=== PATIENT | female | born 1965 | race Caucasian/White ===

== ENCOUNTER → 2017-10-03 | Outpatient (CLI) | payer MEDICARE, MEDICAID ==
[~2017-10-03] MED LIST: ALLERGY PILL; BLOOD PRESSURE PO; CELEXA; DOXYCYCLINE 10100 MG PO; HYGROTON25 MG PO; NORCO 325 MG-51 TAB PO; PROAIR HFA0.09 MG/AC IH; SINGULAIR; TYLENOL W/COD1 UDTAB PO; ULTRAM 50MG TAB50 MG PO; VALIUM 10MG10 MG/TAB PO; VALIUM 5MG T5 MG/TAB PO; XANAX .25M0.25 MG/TA PO; XANAX0.5 MG PO; [UNRECOGNIZED DRUG - REMARK]
== END ==
LOC: MC.RAD 08-04 14:20
DX: Z12.31 Encounter for screening mammogram for malignant neoplasm of breast (principal)

== ENCOUNTER → 2017-11-02 | Outpatient (CLI) | payer MEDICARE, MEDICAID | LOC: MC.RAD 12:11 | DX: N63.11 Unspecified lump in the right breast, upper outer quadrant (principal) ==

== ENCOUNTER 2018-06-08 13:45 | Outpatient (RCR) | payer MEDICARE, MEDICAID | END 2018-07-12 | disposition home or self-care (01) | LOC: MKS.ESL.PT | DX: M25.562 Pain in left knee (principal) | CPT/HCPCS: G8978-GP; G8979-GP ==

== ENCOUNTER 2019-06-26 13:56 | Emergency (ER) | payer MEDICARE, MEDICAID ==
[~2019-06-26] VITALS: Ht 157.5 cm; Wt 140.0 kg
[2019-06-26 14:01] VITALS: BP 127/71; TEMP 97.9
[2019-06-26] MEDS ORDERED: TAMIFLU 75MG75 MG PO (15:06)
[2019-06-26 15:10] VITALS: PULSE 89
== END 2019-06-26 15:15 | disposition home or self-care (01) ==
LOC: COL.ER 13:56
DX: J11.1 Influenza due to unidentified influenza virus with other respiratory manifestations (principal)

== ENCOUNTER → 2020-06-15 | Outpatient (REF) ==
[~2020-06-15] MED LIST changes: +CEFTIN500 MG PO; +TAMIFLU 75MG75 MG PO
== END ==
LOC: ZLAB.WCH 09:32
DX: Z01.89 Encounter for other specified special examinations (principal)

== ENCOUNTER → 2021-01-02 | Outpatient (CLI) | payer MEDICARE, MEDICAID | LOC: MC.RAD 10:32 | DX: Z12.31 Encounter for screening mammogram for malignant neoplasm of breast (principal) ==

== ENCOUNTER 2021-01-14 21:59 | Emergency (ER) | payer MEDICARE, MEDICAID ==
[~2021-01-14] VITALS: Ht 157.5 cm; Wt 136.4 kg
[2021-01-14 22:33] VITALS: TEMP 98.1
[2021-01-14 23:16] VITALS: BP 103/61; PULSE 91
== END 2021-01-14 23:16 | disposition home or self-care (01) ==
LOC: COL.ER 21:59
DX: F41.9 Anxiety disorder, unspecified (principal); R25.3 Fasciculation

== ENCOUNTER 2021-03-25 23:06 | Emergency (ER) | payer MEDICARE, MEDICAID ==
[~2021-03-25] VITALS: Ht 157.5 cm; Wt 127.3 kg
[2021-03-25 23:50] VITALS: BP 167/102; PULSE 94; TEMP 98.4
== END 2021-03-25 23:50 | disposition home or self-care (01) ==
LOC: COL.ER 23:06
DX: F41.9 Anxiety disorder, unspecified (principal); R25.3 Fasciculation; J45.909 Unspecified asthma, uncomplicated

== ENCOUNTER 2021-11-20 00:48 | Emergency (ER) | payer MEDICARE, MEDICAID ==
[~2021-11-20] VITALS: Ht 157.5 cm; Wt 138.6 kg
[2021-11-20 00:51] VITALS: TEMP 98.8
[2021-11-20 01:10] LABS: BASO % 0.3 % (0.0-2.0); EOS # 0.6 K/mm3 (0.0-0.7); EOS % 4.6 % (0.0-4.0); GRAN # 8.5 K/mm3 (1.4-6.5); GRAN % 69.6 % (42.2-75.2); HEMATOCRIT 38.6 % (37.0-47.0); HEMOGLOBIN 12.4 g/dl (12.5-16.0); LYMPH # 2.2 K/mm3 (1.2-3.4); LYMPH % 17.8 % (20.0-51.0); MEAN CELL VOLUME 89 fl (80.0-100.0); MEAN CORPUSCULAR HEMOGLOBIN 29 pg (27-31); MEAN CORPUSCULAR HGB CONC 32 g/dl (33.0-37.0); MEAN PLATELET VOLUME 9.6 fl (7.4-10.4); MONO # 0.8 K/mm3 (0.1-0.6); MONO % 6.3 % (1.7-9.3); PLATELET COUNT 298 K/mm3 (130-400); RED BLOOD COUNT 4.35 M/mm3 (4.10-5.30); REDCELL DISTRIBUTION WIDTH-CV 14.9 % (11.5-14.5)
[2021-11-20 01:21] LABS: ALANINE AMINOTRANSFERASE 18 U/L (0-55); ALBUMIN 3.5 gm/dL (3.5-5.0); ALKALINE PHOSPHATASE 103 U/L (40-150); ANION GAP 12 mmol/L (7-16); AST,SGOT 16 U/L (5-34); BILIRUBIN,TOTAL 0.3 mg/dL (0.2-1.2); BLOOD UREA NITROGEN 16 mg/dL (10-20); CALCIUM 10.2 mg/dL (8.4-10.2); CARBON DIOXIDE 23 mmol/L (22-29); CHLORIDE 107 mmol/L (98-107); CREATININE, serum 0.91 mg/dL (0.57-1.11); GLUCOSE 113 mg/dL (70-99); POTASSIUM 4.1 mmol/L (3.5-4.5); SODIUM 142 mmol/L (136-145); TOTAL PROTEIN 7.4 gm/dL (6.2-8.1)
[2021-11-20 01:26] LABS: TROPONIN-I < 0.010 ng/mL (0.00-0.033)
[2021-11-20 02:09] VITALS: BP 154/80; PULSE 99
== END 2021-11-20 02:09 | disposition home or self-care (01) ==
LOC: COL.ER 00:48
PROVIDERS: Emergency Medicine
DX: R60.0 Localized edema (principal)

== ENCOUNTER 2022-04-02 07:39 | Emergency (ER) | payer MEDICARE, MEDICAID ==
[~2022-04-02] VITALS: Ht 157.5 cm; Wt 149.1 kg
[2022-04-02 07:43] VITALS: TEMP 97.7
[2022-04-02 08:33] LABS: BASO # 0.1 K/mm3 (0.0-0.2); BASO % 0.4 % (0.0-2.0); EOS # 0.4 K/mm3 (0.0-0.7); EOS % 2.7 % (0.0-4.0); GRAN # 11.4 K/mm3 (1.4-6.5); GRAN % 74.5 % (42.2-75.2); HEMATOCRIT 43.1 % (37.0-47.0); HEMOGLOBIN 13.8 g/dl (12.5-16.0); LYMPH # 2.4 K/mm3 (1.2-3.4); LYMPH % 15.3 % (20.0-51.0); MEAN CELL VOLUME 91 fl (80.0-100.0); MEAN CORPUSCULAR HEMOGLOBIN 29 pg (27-31); MEAN CORPUSCULAR HGB CONC 32 g/dl (33.0-37.0); MEAN PLATELET VOLUME 10.1 fl (7.4-10.4); MONO % 6.2 % (1.7-9.3); PLATELET COUNT 324 K/mm3 (130-400); RED BLOOD COUNT 4.74 M/mm3 (4.10-5.30); REDCELL DISTRIBUTION WIDTH-CV 15.1 % (11.5-14.5)
[2022-04-02 08:56] LABS: ALBUMIN 3.9 gm/dL (3.5-5.0); BILIRUBIN,TOTAL 0.5 mg/dL (0.2-1.2); CALCIUM 10.7 mg/dL (8.4-10.2); CREATININE, serum 0.92 mg/dL (0.57-1.11); POTASSIUM 4.2 mmol/L (3.5-4.5); TOTAL PROTEIN 8.2 gm/dL (6.2-8.1)
[2022-04-02 11:44] VITALS: BP 141/97; PULSE 83
== END 2022-04-02 11:50 | disposition home or self-care (01) ==
LOC: COL.ER 07:39
PROVIDERS: Emergency Medicine
DX: N93.9 Abnormal uterine and vaginal bleeding, unspecified (principal); N83.201 Unspecified ovarian cyst, right side; N83.202 Unspecified ovarian cyst, left side; Z28.311 Partially vaccinated for COVID-19
CPT/HCPCS: Q9967

== ENCOUNTER 2023-09-12 19:59 | Emergency (ER) | payer MEDICARE, MEDICAID ==
[~2023-09-12] VITALS: Ht 157.5 cm; Wt 134.5 kg
[2023-09-12 19:59] VITALS: TEMP 97.1
[~2023-09-12 19:59] MED LIST changes: +00186-0370-20 IH; +ATARAX 25MG25 MG/TAB PO; +BACTRIM DS 8001 TAB PO; +CEPHALEXIN500 M1 PO; +CLEOCIN HC150 MG/CAP PO; +DESENEX TP; +DIFLUCAN150 MG PO; +DIFLUCAN200 MG PO; +ERGOCALCIFER50000 IU PO; +FLONASE NASAL S16 GM NS; +GLUCOPHAGE1000 MG PO; +INSULIN PEN NE1 EAC1 MC; +LASIX 40MG TABL40 MG PO; +LEVEMIR FLEX100 U/ML SQ; +LIPITOR 40MG TA40 MG PO; +MOUNJARO2.5 MG/0.5 SQ; +MYCOGEN CR 15GM TP; +MYCOSTATIN100000 U/1 TP; +NYSTATIN CREAM15 GM TP; +VENTOLIN0.09 MG IH; +VICTOZA6 MG/ML SQ
[2023-09-12 20:21] LABS: URINE APPEARANCE TURBID (CLEAR/HAZY); URINE BLOOD TRACE (NEGATIVE); URINE COLOR YELLOW (YELLOW); URINE GLUCOSE 3+ (NEGATIVE); URINE KETONE NEGATIVE (NEGATIVE); URINE NITRATE NEGATIVE (NEGATIVE); URINE PROTEIN(semi-quant) NEGATIVE (NEGATIVE); URINE UROBILINOGEN 0.2 E.U/dL (0.2-1.0)
[2023-09-12] MEDS ORDERED: MYCOGEN CR 15GM TP (20:24)
[2023-09-12 20:31] LABS: BUDDING YEAST PRESENT (NOT PRESENT); URINE BACTERIA MODERATE /hpf (NONE SEEN)
[2023-09-12] MEDS ORDERED: CEFTIN500 MG PO (20:44)
[2023-09-12] MEDS ORDERED: Cefuroxime 250 MG TAB PO ONE (20:45)
[2023-09-12 21:02] VITALS: BP 145/82; PULSE 90
[2023-09-13 10:16] LABS: COLLECTION METHOD CLEAN CATCH
== END 2023-09-12 21:02 | disposition home or self-care (01) ==
LOC: COL.ER 19:59
PROVIDERS: Nurse Practitioner Primary Care
DX: B37.2 Candidiasis of skin and nail (principal); N39.0 Urinary tract infection, site not specified

== ENCOUNTER 2024-02-01 05:55 | Emergency (ER) | payer MEDICARE, MEDICAID ==
[~2024-02-01] VITALS: Ht 157.5 cm; Wt 131.8 kg
[2024-02-01 05:57] VITALS: TEMP 99
[2024-02-01] MEDS ORDERED: LORazepam 1 MG TAB PO ONE (06:15)
[2024-02-01 06:35] VITALS: BP 126/91; PULSE 88
== END 2024-02-01 06:35 | disposition home or self-care (01) ==
LOC: COL.ER 05:55
DX: R25.3 Fasciculation (principal)

== ENCOUNTER 2024-04-23 11:29 | Emergency (ER) | payer MEDICARE, MEDICAID ==
[~2024-04-23] VITALS: Ht 157.5 cm; Wt 128.2 kg
[2024-04-23 11:35] VITALS: TEMP 98.3
[2024-04-23] MEDS ORDERED: Ibuprofen 400 MG TAB PO ONE (12:00)
[2024-04-23] MEDS ORDERED: Cyclobenzaprine 10 MG TAB PO ONE (12:00)
[2024-04-23] MEDS ORDERED: MOTRIN 800800 MG/TAB PO (12:14)
[2024-04-23] MEDS ORDERED: FLEXERIL 1010 MG/TAB PO (12:14)
[2024-04-23 12:29] VITALS: BP 114/77; PULSE 94
== END 2024-04-23 12:35 | disposition home or self-care (01) ==
LOC: COL.ER 11:29
DX: S39.012A Strain of muscle, fascia and tendon of lower back, initial encounter (principal); S43.402A Unspecified sprain of left shoulder joint, initial encounter; X50.9XXA Other and unspecified overexertion or strenuous movements or postures, initial encounter